=== PATIENT | male | born 1945 | race Caucasian/White ===

== ENCOUNTER 2016-10-17 17:11 | Inpatient (IN) | payer OTHER ==
[2016-10-17] MEDS ORDERED: LORazepam 2 MG/ML INJ IVP ONE (17:36)
--- NOTE | 2016-10-17 17:36 | EDPHY ---
H & P Time Seen by Provider: 10/17/16 17:14 HPI/ROS: CHIEF COMPLAINT: Altered mental status. Limitations: AMS, unable to provide any clinical history HISTORY OF PRESENT ILLNESS: The patient is a 71 year old male with paraplegia presenting with altered mental status. Onset of altered mental status is 3 weeks ago. The patient has gradually been worsening. Ativan occasionally provides relief. A home doctor saw the patient yesterday. He has a diagnosed draining abscess on the buttock and started on Levaquin. The patient took 1 dose of Levaquin. No fever in the last few days. Over the past week the patient has been complaining of pain, however, it is unclear of where the patient is having pain. The family decided to bring the pt to the ED because it is very difficult to care for him at home and they would like to pursue hospice care. History was obtained from the patient's daughter. REVIEW OF SYSTEMS: Unobtainable due to patients altered mental status. Past Medical/Surgical History: Traumatic T6 fracture, Paraplegic, Tib/Fib fractures, Pressure ulcers. Social History: Daughter provided history. Smoking Status: Never smoked Physical Exam: General Appearance: Alert, agitated Eyes: Pupils equal and round, no conjunctival pallor ENT, Mouth: Mucous membranes dry Neck: Normal inspection Respiratory: refuses lung exam Cardiovascular: refuses CV exam Gastrointestinal: Abdomen is soft Buttocks: draining abscess left buttock, no erythema Neurological: Alert, unable to access orientation, paraplegia Skin: Warm and dry Extremities: normal inspection Psychiatric: agitated Constitutional: Initial Vital Signs Temperature (C) 36.5 C 10/17/16 17:47 Heart Rate 108 H 10/17/16 17:47 Respiratory Rate 20 10/17/16 17:47 Blood Pressure 160/86 H 10/17/16 17:47 O2 Sat (%) 95 10/17/16 17:47 O2 Delivery Mode Nasal Cannula O2 (L/minute) 2 Allergies/Adverse Reactions: oxycodone Allergy (Verified 10/17/16 17:46) Home Medications: Medication Instructions Recorded Herbals/Supplements -Info Only 1 ea PO DAILY 06/30/16 LORazepam [Ativan] 0 mg PO ONCE 10/17/16 morphINE [Roxanol 10 mg/0.5 ml 0 mg PO ONCE 10/17/16 oral soln (*)] Medical Decision Making - Diagnostics EKG Interpretation: The 12 lead EKG was interpreted by myself. See hard copy and/or "tracemaster" electronic copy for interpretation: Atrial fibrillation. Abnormal T. Prolonged QT interval. ED Course/Re-evaluation: The patient is a 71 year old paraplegic male presenting with altered mental status. Onset of AMS is 3 weeks ago, and has since been worsening. The patient is afebrile. He was visited by a home doctor who diagnosed him with a buttock abscess and was started on Levaquin. The abscess has continued to drain. A wound culture was sent. Further examination is difficult to obtain due to patient's agitation. A straight cath was used to obtain a urine sample, UA is pending. Meets SIRS criteria with tachycardia and leukocytosis. Lactate normal; does not meet severe sepsis criteria. IV was established. The patient received 1gm Invanz to treat buttock abscess and and 1mg Ativan for agitation. CT head is pending. UA is positive for leukocyte esterase. Prior urine cx positive for Staph Epidermidus, likely colonization. The patient received IV Vancomycin and IV fluids. I spoke to the hospitalist, the patient will be admitted to Dr. Flood. 7:32 p.m.: I spoke to the radiologist Dr. Alonzo. CT head reveals a chronic evolving large ischemic infarct. I viewed the images myself on the PACS system. See the full radiology report in the imaging section. 7:35 p.m.: I discussed findings with the patient's family. Onset of AMS about 6 weeks ago, likely time of onset of CVA. ASA 325mg [place] given. Differential Diagnosis: Altered mental status including but not limited to hypoglycemia, infectious process, electrolyte abnormality, head injury and intoxicants. - Data Points Laboratory Results: Laboratory Results 10/17/16 17:45 10/17/16 17:45 Microbiology Results: MICROBIOLOGY 10/17/16 17:30 Buttock - Swab Gram Stain - Final 10/17/16 17:30 Buttock - Swab Wound Culture - Preliminary Staphylococcus Aureus 10/17/16 17:45 Blood Blood Culture - Preliminary 10/17/16 18:00 Blood Blood Culture - Preliminary Medications Given: Discontinued Medications Aspirin (Aspirin) 324 mg PO EDNOW ONE Stop: 10/17/16 19:45 Last Admin: 10/17/16 20:10 Dose: 324 mg Enoxaparin Sodium (Lovenox) 30 mg SC DAILY LUZ Stop: 04/16/17 08:59 Last Admin: 10/19/16 08:31 Dose: 30 mg Ertapenem 1 gm/ Sodium (Chloride) 100 mls @ 200 mls/hr IV EDNOW ONE PRN Reason: Protocol Stop: 10/17/16 18:07 Last Admin: 10/17/16 18:30 Dose: 100 mls Sodium Chloride (Ns) 1,000 mls @ 0 mls/hr IV ONCE ONE PRN Reason: Wide Open Stop: 10/17/16 18:40 Last Admin: 10/17/16 18:49 Dose: 1,000 mls Vancomycin/Sodium Chloride (Vancomycin 1 Gm (Premix)) 250 mls @ 250 mls/hr IV EDNOW ONE PRN Reason: Protocol Stop: 10/17/16 19:50 Last Admin: 10/17/16 20:20 Dose: 250 mls Sodium Chloride (Ns) 1,000 mls @ 75 mls/hr IV CONT LUZ Stop: 04/15/17 23:44 Last Admin: 10/18/16 00:28 Dose: 1,000 mls Lorazepam (Ativan Injection) 1 mg IVP EDNOW ONE Stop: 10/17/16 17:37 Last Admin: 10/17/16 17:49 Dose: 1 mg Lorazepam (Ativan Injection) 0.5 - 1 mg IVP Q12 PRN PRN Reason: Anxiety, Unable to Take PO Stop: 04/16/17 10:40 Last Admin: 10/18/16 11:33 Dose: 1 mg Lorazepam (Ativan Injection) 0.5 - 1 mg IVP Q4HRS PRN PRN Reason: Anxiety, Unable to Take PO Stop: 04/16/17 10:40 Last Admin: 10/19/16 05:15 Dose: 1 mg Magnesium Hydroxide (Milk Of Magnesia) 30 ml PO ONCE ONE Stop: 10/19/16 09:31 Last Admin: 10/19/16 16:56 Dose: Not Given Mineral Oil (Muri-Lube Mineral Oil) 30 ml TP ONCE ONE Stop: 10/19/16 09:31 Last Admin: 10/19/16 16:56 Dose: Not Given Morphine Sulfate (Morphine) 1 - 2 mg IVP Q4HRS PRN PRN Reason: Pain, Severe Unable to Take PO Stop: 10/27/16 23:33 Last Admin: 10/18/16 09:36 Dose: 2 mg Morphine Sulfate (Morphine) 1 - 2 mg IVP Q1 PRN PRN Reason: Pain, Severe Unable to Take PO Stop: 10/27/16 23:33 Last Admin: 10/19/16 08:28 Dose: 2 mg Departure - Departure Disposition: [facility] Inpatient Acute Clinical Impression: Abscess of buttock Altered mental status Qualifiers: Altered mental status type: delirium Qualified Code(s): R41.0 - Disorientation , unspecified UTI (urinary tract infection) Qualifiers: Urinary tract infection type: catheter-associated UTI Indwelling urinary catheter type: unspecified Encounter type: initial encounter Qualified Code(s): T83.511A - Infection and inflammatory reaction due to indwelling urethral catheter, initial encounter; N39.0 - Urinary tract infection, site not specified CVA (cerebral vascular accident) Qualifiers: CVA mechanism: embolism Precerebral and cerebral artery: middle cerebral artery Laterality of affected vessel: right Qualified Code(s): I63.411 - Cerebral infarction due to embolism of right middle cerebral artery Condition: Serious Report Scribed for: Dorothea Spear Report Scribed by: Katelyn Ríos Date of Report: 10/17/16 Time of Report: 17:17 Physician Review and Approval Statement: 10/17/16 17:18 Portions of this note were transcribed by a hospital medical biller. I personally performed the history, physical exam, and medical decision-making; and confirmed the accuracy of the information in the transcribed note.
[2016-10-17] MEDS ORDERED: ERTAPENEM 1 GM in NS 100 ML IV ONE (17:38)
[2016-10-17 18:21] LABS: % IMMATURE GRANULYOCYTES 1.3 % (0.0-1.1); ABSOLUTE IMMATURE GRANULOCYTES 0.16 10^3/uL (0.00-0.10); ABSOLUTE NRBC COUNT 0.09 10^3/uL (0-0.01); ADD DIFF? NO; ADD MORPH? NO; ADD SCAN? NO; ATYPICAL LYMPHOCYTE FLAG 20 (0-99); FRAGMENT RBC FLAG 0 (0-99); HEMATOCRIT 38.7 % (40.0-51.0); HEMOGLOBIN 12.8 g/dL (13.7-17.5); LEFT SHIFT FLG 10 (0-99); LIPEMIA HEMOLYSIS FLAG 80 (0-99); MEAN CELL HEMOGLOBIN 30.3 pg (27.9-34.1); MEAN CELL HEMOGLOBIN CONCENTR. 33.1 g/dL (32.4-36.7); MEAN CELL VOLUME 91.7 fL (81.5-99.8); MEAN PLATELET VOLUME 11.7 fL (8.7-11.7); NRBC-AUTO% 0.7 % (0.0-0.2); PLATELET CLUMPS FLAG 10 (0-99); PLATELET COUNT 219 10^3/uL (150-400); RED BLOOD CELL COUNT 4.22 10^6/uL (4.40-6.38)
[2016-10-17 18:26] LABS: ANION GAP 13 mEq/L (8-16); CALCIUM 8.8 mg/dL (8.5-10.4); CARBON DIOXIDE 27 mEq/l (22-31); CHLORIDE 102 mEq/L (97-110); CREATININE 0.7 mg/dL (0.7-1.3); GLOMERULAR FILTRATION RATE > 60; GLUCOSE 103 mg/dL (70-100); POTASSIUM 4.6 mEq/L (3.5-5.2); SODIUM 142 mEq/L (134-144)
[2016-10-17] MEDS ORDERED: NS 1,000 ML IV ONE (18:39)
[2016-10-17 18:57] LABS: COLOR AMBER; LEUKOCYTE ESTERASE,URINE 2+ (NEGATIVE); NITRITE,URINE NEGATIVE (NEGATIVE)
[2016-10-17 19:01] LABS: MUCUS 4+ /lpf (NONE-1+); WBC,URINE 50-182 /hpf (0-3)
[2016-10-17] MEDS: VANCOMYCIN HCL/NORMAL SALINE 250 ML IV ONE ×2 (19:11→20:20)
--- NOTE | 2016-10-17 19:43 | CPEKG ---
Heart Rate: 88 RR Interval: 682 QRSD Interval: 100 QT Interval: 428 QTC Interval: 518 QRS [place]: 44 T Wave [place]: 265 EKG Severity - ABNORMAL ECG - EKG Impression: ATRIAL FIBRILLATION, V-RATE 64-115 EKG Impression: ABNORMAL T, CONSIDER ISCHEMIA, INFERIOR LEADS EKG Impression: PROLONGED QT INTERVAL EKG Impression: ATRIAL FIB NCHANGED, BUT T WAVE CHANGES NEW Electronically Signed By: Duc Babb 18-Oct-2016 08:58:34
[2016-10-17] MEDS ORDERED: ASPIRIN 81 MG CHEWABLE TAB PO ONE (19:44)
[2016-10-17] MEDS ORDERED: VANCOMYCIN 1 GM/NS 250 ML BAG IV ONE (20:03)
[2016-10-17] MEDS ORDERED: ONDANSETRON 4 MG/2 ML VIAL IVP PRN (23:34)
[2016-10-17] MEDS ORDERED: ONDANSETRON DISINTEGRATING 4 MG TAB PO PRN (23:34)
[2016-10-17] MEDS ORDERED: ACETAMINOPHEN 325 MG TAB PO PRN (23:34)
--- NOTE | 2016-10-17 23:42 | PDGENHP ---
History and Physical - Chief Complaint altered mental status - History of Present Illness Patient is a 71-year-old male with history of paraplegia, chronic pain, known history of AFib not on anticoagulation due to patient's choice, previous history of pulmonary embolism and BPH who presents to the ED with altered mental status. History is obtained from patient's family, due to patient's altered mental status. states she feels patient has not been acting normally since returning from vacation in [place] about 6 weeks ago. At that time, he appeared to be acting confused, but without focal deficits, so he was evaluated by a PMD. At that time, his Na level was noted to be 122, so altered mental status was attributed to this. Sodium was corrected over time, but patient's confusion/AMS did not improve according to his . During this time , he had also been complaining of increased pain, so he had been taking increased doses of CBD oil and family attributed some of his confusion to this. However, about 1 week ago, patient became acutely more altered, began to have decreased PO intake and decreased sleep. On the day prior to presentation, patient appeared to be having word-finding difficulty/was using incorrect words. There was no associated dysarthria or dysphagia. He was evaluated by a home-visiting PMD and a buttock abscess was discovered on this visit. He was started on Levaquin, however, on day of presentation, patient became acutely more agitated with his family, so they decided to bring him in to the ED for further evaluation. On arrival to the ED, patient was afebrile and hemodynamically stable, however, was acutely agitated, preventing medical intervention. He was sedated with lorazepam and CT head was obtained. This revealed a large subacute R parietal- occipital infarct that appears consistent with embolic etiology. UA also revealed possible UTI, so he was initiated on antibiotics and admitted to the hospitalist service for further management. History Information - Allergies/Home Medication List Allergies/Adverse Reactions: oxycodone Allergy (Verified 10/17/16 17:46) Home Medications: Herbals/Supplements -Info Only 1 ea PO DAILY 06/30/16 [Last Taken Unknown] LORazepam [Ativan] 0 mg PO ONCE 10/17/16 [Last Taken 10/17/16] morphINE [Roxanol 10 mg/0.5 ml oral soln (*)] 0 mg PO ONCE 10/17/16 [Last Taken 10/17/16] I have personally reviewed and updated: family history, medical history, social history, surgical history - Past Medical History Additional medical history: h/o trauma 06/2016 resulting in intracranial hemorrhage. atrial fibrillation, known since 2006, not on anticoagulation. paraplegia due to major trauma in 1984. h/o Pulmonary embolism (2006). h/o prostate cancer, in remission. h/o basal cell ca - Surgical History Additional surgical history: major trauma (fall from 3 flight building) in 1984 with multiple surgeries related to this - Social History Smoking Status: Never smoked Alcohol Use: Rarely Drug Use: None Additional social history: Patient lives with his , splits time between [place] and [place]. is MPOA, has 2 children. Review of Systems Review of Systems: unable to obtain due to altered mental status Physical Exam Temp Pulse Resp BP Pulse Ox 36.6 C 80 20 143/88 H 99 10/17/16 20:59 10/17/16 20:59 10/17/16 20:59 10/17/16 20:59 10/17/16 20:59 O2 (L/minute) 2 Constitutional: not in pain, chronically ill appearing, cachectic Eyes: PERRL, anicteric sclera, EOMI Ears, Nose, Mouth, Throat: moist mucous membranes, hearing normal, ears appear normal, no oral mucosal ulcers Cardiovascular: no murmur, rub, or gallop, irregularly irregular, pulses symmetric bilaterally, No JVD, No edema Peripheral Pulses: 2+: dorsalis-pedis (R), dorsalis-pedis (L) Respiratory: no respiratory distress, no rales or rhonchi, clear to auscultation Gastrointestinal: normoactive bowel sounds, soft, non-tender abdomen, no palpable masses, distension (moderately distended, not obviously tender) Genitourinary: no bladder fullness, no bladder tenderness Skin: other (L buttock abscess draining, no surrounding erythemia) Musculoskeletal: full muscle strength, no muscle tenderness, normal joint ROM, no joint effusions Neurologic: other (obtunded, with miotic pupils, equal and reactive; spastic movements of bilateral lower extremities; moving bilateral upper extremities equally) Lab Data & Imaging Review 10/18/16 04:20 10/18/16 04:20 WBC 12.51 10^3/uL (3.80-9.50) H 10/17/16 17:45 RBC 4.22 10^6/uL (4.40-6.38) L 10/17/16 17:45 Hgb 12.8 g/dL (13.7-17.5) L 10/17/16 17:45 Hct 38.7 % (40.0-51.0) L 10/17/16 17:45 MCV 91.7 fL (81.5-99.8) 10/17/16 17:45 MCH 30.3 pg (27.9-34.1) 10/17/16 17:45 MCHC 33.1 g/dL (32.4-36.7) 10/17/16 17:45 RDW 15.0 % (11.5-15.2) 10/17/16 17:45 Plt Count 219 10^3/uL (150-400) 10/17/16 17:45 MPV 11.7 fL (8.7-11.7) 10/17/16 17:45 Neut % (Auto) 77.2 % (39.3-74.2) H 10/17/16 17:45 Lymph % (Auto) 10.7 % (15.0-45.0) L 10/17/16 17:45 Kerr % (Auto) 10.6 % (4.5-13.0) 10/17/16 17:45 Eos % (Auto) 0.0 % (0.6-7.6) L 10/17/16 17:45 Baso % (Auto) 0.2 % (0.3-1.7) L 10/17/16 17:45 Nucleat RBC Rel Count 0.7 % (0.0-0.2) H 10/17/16 17:45 Absolute Neuts (auto) 9.67 10^3/uL (1.70-6.50) H 10/17/16 17:45 Absolute Lymphs (auto) 1.34 10^3/uL (1.00-3.00) 10/17/16 17:45 Absolute Monos (auto) 1.32 10^3/uL (0.30-0.80) H 10/17/16 17:45 Absolute Eos (auto) 0.00 10^3/uL (0.03-0.40) L 10/17/16 17:45 Absolute Basos (auto) 0.02 10^3/uL (0.02-0.10) 10/17/16 17:45 Absolute Nucleated RBC 0.09 10^3/uL (0-0.01) H 10/17/16 17:45 Immature Gran % 1.3 % (0.0-1.1) H 10/17/16 17:45 Immature Gran # 0.16 10^3/uL (0.00-0.10) H 10/17/16 17:45 VBG Lactic Acid 2.0 mmol/L (0.7-2.1) 10/17/16 20:02 Sodium 142 mEq/L (134-144) 10/17/16 17:45 Potassium 4.6 mEq/L (3.5-5.2) 10/17/16 17:45 Chloride 102 mEq/L (97-110) 10/17/16 17:45 Carbon Dioxide 27 mEq/l (22-31) 10/17/16 17:45 Anion Gap 13 mEq/L (8-16) 10/17/16 17:45 BUN 29 mg/dL (7-23) H 10/17/16 17:45 Creatinine 0.7 mg/dL (0.7-1.3) 10/17/16 17:45 Estimated GFR > 60 10/17/16 17:45 Glucose 103 mg/dL (70-100) H 10/17/16 17:45 Calcium 8.8 mg/dL (8.5-10.4) 10/17/16 17:45 Urine Color RONALD 10/17/16 18:42 Urine Appearance CLEAR 10/17/16 18:42 Urine pH 5.0 (5.0-7.5) 10/17/16 18:42 Ur Specific [place] 1.023 (1.002-1.030) 10/17/16 18:42 Urine Protein 2+ (NEGATIVE) H 10/17/16 18:42 Urine Ketones TRACE (NEGATIVE) H 10/17/16 18:42 Urine Blood NEGATIVE (NEGATIVE) 10/17/16 18:42 Urine Nitrate NEGATIVE (NEGATIVE) 10/17/16 18:42 Urine Bilirubin NEGATIVE (NEGATIVE) 10/17/16 18:42 Urine Urobilinogen NEGATIVE EU (0.2-1.0) 10/17/16 18:42 Ur Leukocyte Esterase 2+ (NEGATIVE) H 10/17/16 18:42 Urine RBC 1-3 /hpf (0-3) 10/17/16 18:42 Urine WBC 50-182 /hpf (0-3) H 10/17/16 18:42 Ur Epithelial Cells 1+ /lpf (NONE-1+) 10/17/16 18:42 Urine Mucus 4+ /lpf (NONE-1+) H 10/17/16 18:42 Ur Culture Indicated? INDICATED (NI) H 10/17/16 18:42 Urine Glucose NEGATIVE (NEGATIVE) 10/17/16 18:42 Visualized and Interpreted imaging results: Yes Interpretation: CT head: large subacute parietal-occipital infarct with encephalomalacia. AXR: large dilated loops of bowel, no obvious obstruction Visualized and Interpreted EKG results: Yes EKG additional interpertation: atrial fibrillation Assessment & Plan Assessment: Patient is a 71 year old male with atrial fibrillation, paraplegia with chronic pain who presents to the ED with his family due to acute/subacute encephalopathy. ED work up reveals large, subacute R ischemic infarct with encephalomalacia, and possible UTI. Plan: # acute/subacute encephalopathy Family indicates patient has been altered for the past 5-6 weeks, initially attributed to hyponatremia. MS has acutely worsened in the past 2-3 days, with new agitation and word-finding difficulties, according to patient's . On my evaluation, exam is difficult to assess due to sedation from recent ativan. ED work up reveals CT head with large infarct, as well as L buttock abscess and also UTI. Will treat infections and monitor MS. # subacute R parietal/occipital infarct This likely occurred 2-3 days prior to presentation, when patient's noted a change in his speech/increased agitation. CT imaging appears consistent with embolic etiology and patient with known afib not on systemic anticoagulation due to patient choice. Patient's continues to refuse systemic anticoagulation at this time. Will check TTE, lipid panel, TSH and obtain neuro consult. Patient not tpa candidate due to delayed presentation. # leukocytosis, UTI Patient with tachycardia and leukocytosis on presentation and UA positive for wbc and LE, consistent with mild sepsis from UTI. Patient also has draining abscess on L buttock. Will obtain wound consult/evaluation for this, f/u blood and urine cultures and cont antibiotics. Lactic acid is normal. # atrial fibrillation HR currently stable. Patient not on any rate controlling or anticoagulation meds at home. Will monitor HR and control if needed. Will also trend troponins and monitor EKGs for ischemic changes. # paraplegia, chronic pain Stable at present, will treat pain as needed. 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
[2016-10-17] MEDS ORDERED: NS 1,000 ML IV SCH (23:45)
[2016-10-18 04:36] LABS: ABSOLUTE IMMATURE GRANULOCYTES 0.09 10^3/uL (0.00-0.10); ABSOLUTE NRBC COUNT 0.08 10^3/uL (0-0.01); ADD DIFF? NO; ADD MORPH? NO; ADD SCAN? NO; ATYPICAL LYMPHOCYTE FLAG 20 (0-99); FRAGMENT RBC FLAG 0 (0-99); HEMOGLOBIN 11.4 g/dL (13.7-17.5); LEFT SHIFT FLG 0 (0-99); LIPEMIA HEMOLYSIS FLAG 80 (0-99); MEAN CELL HEMOGLOBIN 30.3 pg (27.9-34.1); MEAN CELL HEMOGLOBIN CONCENTR. 33.5 g/dL (32.4-36.7); MEAN CELL VOLUME 90.4 fL (81.5-99.8); MEAN PLATELET VOLUME 11.5 fL (8.7-11.7); NRBC-AUTO% 0.9 % (0.0-0.2); PLATELET CLUMPS FLAG 0 (0-99); PLATELET COUNT 195 10^3/uL (150-400); RED BLOOD CELL COUNT 3.76 10^6/uL (4.40-6.38); RED CELL DISTRIBUTION WIDTH 14.9 % (11.5-15.2)
[2016-10-18 04:46] LABS: APTT 31.7 SEC (23.0-38.0); INR 1.52 (0.83-1.16); PROTIME(PATIENT) 18.3 SEC (12.0-15.0)
[2016-10-18 04:51] LABS: ALANINE AMINOTRANSFERASE 96 IU/L (21-72); ALBUMIN 2.3 g/dL (3.5-5.0); ALKALINE PHOSPHATASE 216 IU/L (38-126); ANION GAP 8 mEq/L (8-16); ASPARTATE AMINOTRANSFERASE 49 IU/L (17-59); BILIRUBIN,TOTAL 0.6 mg/dL (0.1-1.4); BILIRUBIN-CONJUGATED 0.4 mg/dL (0.0-0.5); BILIRUBIN-UNCONJUGATED 0.2 mg/dL (0.0-1.1); CALCIUM 8.1 mg/dL (8.5-10.4); CARBON DIOXIDE 24 mEq/l (22-31); CHLORIDE 109 mEq/L (97-110); CHOLESTEROL 87 mg/dL (140-220); CHOLESTEROL/HDL RATIO 4.14 RATIO (1.00-4.97); CREATININE 0.7 mg/dL (0.7-1.3); GLOMERULAR FILTRATION RATE > 60; GLUCOSE 81 mg/dL (70-100); HIGH DENSITY LIPOPROTEIN 21 mg/dL (40-65); LDL/HDL RATIO 2.48 RATIO (1.00-3.64); LOW DENSITY LIPOPROTEIN 52 mg/dL (80-100); MAGNESIUM 2.6 mg/dL (1.6-2.3); NON-HIGH DENSITY LIPOPROTEIN 66 mg/dL (90-129); POTASSIUM 4.2 mEq/L (3.5-5.2); SODIUM 141 mEq/L (134-144); TOTAL PROTEIN 5.2 g/dL (6.3-8.2); TRIGLYCERIDE 74 mg/dL (40-150); VERY LOW DENSITY LIPOPROTEINS 14 mg/dL (8-25)
[2016-10-18 05:00] LABS: CREATINE KINASE-MB FRACTION 1.38 ng/mL (0-3.19); TROPONIN I 0.118 ng/mL (0-0.034)
[2016-10-18] MEDS: ERTAPENEM 1 GM in NS 100 ML IV SCH (09:26)
[2016-10-18] MEDS: ASPIRIN 81 MG CHEWABLE TAB PO SCH (09:26)
[2016-10-18] MEDS: ENOXAPARIN 30 MG/0.3 ML SYR SC SCH (09:26)
[2016-10-18] MEDS ORDERED: LORazepam 2 MG/ML INJ IVP PRN (10:41)
[2016-10-18] MEDS ORDERED: IOPAMIDOL (ISOVUE-300) 100 ML BTL IV ONE (13:57)
--- NOTE | 2016-10-18 14:17 | WOCRNPDOC ---
ERAN Advanced Assessment Note - Skin Integrity Problem, Advanced Assess Left Buttock Dressing Type: Allevyn Life Dressing Description: Saturated, Soiled Exudate Amount: Excessive Exudate Color: Yellow Exudate Characteristic(s): Seropurulent, Serosanguinous Integumentary Issue Intervention: Dressing Changed, Dressing Initialed & Dated Marichuy Wound Tissue: Erythema, Raw, Thin, Altered Sensitivity (2/2 paraplegia) Marichuy Wound Swelling: Mild Wound Bed Color: Red Wound Bed Constitution: Tunneling (5 cm deep, interiorly) Wound Edges: Well Defined Site Odor: None, Slight, Musky Site Measurement - Head-to-Toe Length X Width X Depth (cm): 0.5 cm elisa x 5 cm d. Pressure Injury Stage: Stage 4 Pressure Injury Present on Admit: Yes (per , has been caring for at home "for many months") Skin Integrity Problem Comment: Evaluated patient with Dr. Lancaster. SUGAR Troncoso in room to assist with care. Copious amount of seropurulent fluid exuding from small opening in medial L buttock, saturating Allevyn. Obtained culture per order of Dr. Lancaster. Irrigated site w/10cc sterile NS, cleansed intact w/gauze; Skin-prepped periwound, filled with 1/4" Algidex antimicrobial tape; covered w/ absorbent non-bordered foam and Allevyn. Discussed use of ordered pressure redistribution bed and seating surfaces with and with SUGAR Troncoso, and recommended to that PT be consulted regarding custom orthotic seating. Bilateral Sacrum Pressure Injury Dressing Type: Allevyn Life Dressing Description: Soiled Exudate Amount: None Integumentary Issue Intervention: Dressing Changed, Dressing Initialed & Dated Marichuy Wound Tissue: Thin, Scarred Wound Bed Color: [place] Wound Edges: Epithelizing, Irregular Site Odor: None Site Measurement - Head-to-Toe Length X Width X Depth (cm): 2 x 3 x 0.05 Pressure Injury Present on Admit: Yes (evidence of a resurfaced pressure ulcer of undetermined [full-thickness] d) Skin Integrity Problem Comment: Evidence of a resurfaced pressure ulcer of undetermined depth; was under care of at home, per her report and description of care, including use of "honey dressings" and "air cushion." Small pink area, measurements noted above, has the appearance of new-re- epithelializing activity. Cleansed using NS and gauze; Skin prep to intact tissue, Allevyn sacrum to protect. SUGAR Troncoso assisting.
--- NOTE | 2016-10-18 15:26 | HOSPPROG ---
Hospitalist Progress Note Assessment/Plan: * large right parietal occipital CVA * probably embolic from atrial fibrillation * echo pending * will add a carotid ultrasound * neurology will see * encephalopathy * multifactorial * urinary tract infection * continue Invanz * sacral decubitus * 1 area is stage IV due to tunneling tract versus abscess * the other is unstageable * present on admission * continue Invanz/ wound care * will get CT scan to evaluate for abscess and possible osteomyelitis * abdominal pain * check CT scan * history paraplegia * atrial fibrillation * has refused anticoagulation * elevated alk-phos * will check GGT * DVT prophylaxis Subjective: Complaining of severe right lower abdominal pain. is speaking in [place] most the time Objective: Vital Signs Temp Pulse Resp BP Pulse Ox 36.4 C 105 H 16 132/82 H 90 L 10/18/16 15:03 10/18/16 15:03 10/18/16 15:03 10/18/16 15:03 10/18/16 15:03 Laboratory Results 10/18/16 04:20 10/18/16 04:20 10/17/16 10/18/16 10/19/16 05:59 05:59 05:59 Intake Total 1350 0 Output Total 400 400 Balance 950 -400 PT 18.3 SEC (12.0-15.0) H 10/18/16 04:20 INR 1.52 (0.83-1.16) H 10/18/16 04:20 CT scan the head personally viewed interpreted - large CVA telemetry personally viewed interpreted atrial fibrillation - Time Spent With Patient Time Spent with Patient: greater than 35 minutes (discussing plan of care with family and patient) Time Spent with Patient: Greater than 35 minutes spent on this patients care, greater than 50% of time spent counseling, educating, and coordinating care regarding the above mentioned plan. - Physical Exam Constitutional: other ( moderate distress secondary to pain) Eyes: anicteric sclera, EOMI Ears, Nose, Mouth, Throat: moist mucous membranes, hearing normal, ears appear normal Cardiovascular: irregularly irregular Respiratory: no respiratory distress, no rales or rhonchi, clear to auscultation Gastrointestinal: normoactive bowel sounds, soft, non-tender abdomen ( no real tenderness. Abdominal wall muscles are quite thin), distension Skin: warm Neurologic: other ( is agitated. Answers some questions) Psychiatric: agitated ICD10 Worksheet Patient Problems: Problems Problem Status Onset Abscess of buttock Acute Altered mental status Acute UTI (urinary tract infection) Acute Intraparenchymal hematoma of brain Acute Maxillary sinus fracture Acute Orbital fracture Acute Skull fracture Acute
--- NOTE | 2016-10-18 15:53 | ECHO ---
[id number] + + [phone] : : [place] [address] : : [phone] + + Adult Echocardiographic Report + ------+ :Name: LOLA MCGRAW BStudy Date: 10/18/2016 01:36 PM : : Hospital Admission Number: [id number] Locatio n: 370: :: 1945 Gender: Male Height: 72 in : :Age: 71 yrs Race: WH Weight: 120 lb : :Reason For Study: Ischemic stroke : : BSA: 1.7 meters 2 : + ------+ MMode/2D Measurements \T\ Calculations IVSd: 0.84 cm LVIDd: 4.1 cm FS: 21.3 % Ao root diam: LVPWd: 1.4 cm LVIDs: 3.2 cm EDV(Teich): 3.9 cm 74.1 ml LA dimension: ESV(Teich): 3.5 cm 41.7 ml EF(Teich): 43.7 % LVLd ap4: 6.9 cm SV(MOD-sp4): EDV(MOD-sp4): 21.0 ml 53.0 ml LVLs ap4: 6.5 cm ESV(MOD-sp4): 32.0 ml EF(MOD-sp4): 39.6 % Normal Measurement Values: + + :LVIDd (3.5-5.7cm) IVSd (0.6-1.1cm) LVPWd (0.6-1.1cm) Aortic Root (2.0-3.7cm)Left Atrium (1.5-4.0cm): :LV Vol(d) (76-115ml) LV Vol(s) (29-48ml) Ejec Fraction (50-65%)PV Rosales (0.6- 1.2m/s) TV Rosales (0.4-1.0m/s) : :MV E Rosales (0.8-1.0m/s)MV A Rosales (0.3-1.0m/s)LVOT Rosales (0.7-1.2m/s) Asc Ao Rosales ( 0.9-1.8m/s) : + + Doppler Measurements \T\ Calculations MV E max rosales: Ao mean PG: AI max rosales: TR max rosales: 74.0 cm/sec 5.5 mmHg 400.1 cm/sec 249.6 cm/sec Ao V2 mean: AI max P.0 mmHg TR max P.1 cm/sec AI dec slope: 24.9 mmHg Ao V2 VTI: 26.8 cm197.1 cm/sec2 RAP systole: AI P1/2t: 594.5 msec 10.0 mmHg RVSP(TR): 34.9 mmHg Left Ventricle The left ventricle is normal in size. There is normal left ventricular wall thickness. Ejection Fraction = 40-45%. The septum is severely hypokinetic. Right Ventricle The right ventricle is normal size. RV apex is akinetic. Atria The left atrium is moderate to severely dilated. The right atrium is mildly dilated. Mitral Valve The mitral valve is normal in structure and function. There is no evidence of mitral valve prolapse. There is no mitral valve stenosis. There is mild mitral regurgitation. Tricuspid Valve Normal tricuspid valve. There is mild tricuspid regurgitation. Right ventricular systolic pressure is normal. Aortic Valve The aortic valve is trileaflet. All three leaflets are thickened and sclerotic. There is no aortic stenosis. Moderate aortic regurgitation. Pulmonic Valve The pulmonic valve is not well visualized. There is no pulmonic valvular regurgitation. Great Vessels Borderline dilated ascending aorta. Pericardium/Pleural There is no pericardial effusion. Left pleural effusion. Conclusion A complete two-dimensional transthoracic echocardiogram was performed (2D, M-mode, Doppler and color flow Doppler). No bubble study performed per Dr. Randolph. 1. The left ventricle is normal in size with reduced systolic function. The Ejection Fraction = 40-45%. The septum is severely hypokinetic. 2. The left atrium is moderate to severely dilated. 3. The mitral valve is normal in structure and function. There is mild mitral regurgitation. 4. The aortic valve is trileaflet. All three leaflets are thickened and sclerotic. There is no aortic stenosis. There is moderate aortic regurgitation. 5. Right ventricular systolic pressure is normal. 6. Borderline dilated ascending aorta. 7. Left pleural effusion. Final Reading Physician: Duc Rodriguez MD electronically signed on 10/18/2016 03:51 PM Ordering Physician: Kaity Flood Performed By: Mary Lou Do, FRANKLYN
[2016-10-18] MEDS: LORazepam 2 MG/ML INJ IVP PRN (20:25)
--- NOTE | 2016-10-18 21:02 | GCON ---
[f rep st] CONSULTATION INPATIENT CONSULTATION DATE OF CONSULTATION: 10/18/2016 CHIEF COMPLAINT: Stroke. HISTORY OF PRESENT ILLNESS: Dr. Sabrina Flood of the hospitalist service consulted Neurology for evaluation of patient's stroke. Results of the evaluation were placed in the EMR for review. This is a 71-year-old male who suffered a significant traumatic accident from a fall in 1984 resulting in paraplegia. He also has history of pulmonary embolism and atrial fibrillation, but has declined anticoagulation in the past and is only on aspirin 81 mg daily. He spends half of his year in [place], half in [place]. Apparently he had been living in [place] when about 6 weeks ago his noticed significant changes in mental status. They returned to the [place] and initial evaluation found a sodium 122 but no head imaging was performed. The patient remained confused so eventually was brought to the Emergency Room, at which time a head CT showed a subacute right parieto- occipital stroke that was likely from his chronic atrial fibrillation. He also possibly has pressure ulcers on his buttocks and possibly UTI. He is on antibiotics currently and under evaluation for alternative problems currently. PAST MEDICAL HISTORY: History of trauma in June 2016 resulting in intracranial hemorrhage, atrial fibrillation since 2006, paraplegia due to major trauma in 1984 from a fall, pulmonary embolism 2006, history of prostate cancer in remission, history of basal cell cancer. SOCIAL HISTORY: Never smoked. FAMILY HISTORY: Daughter is alive. REVIEW OF SYSTEMS: A 10-point review of systems is negative except what was placed in HPI. PHYSICAL EXAM: VITAL SIGNS: Blood pressure 121/94, heart rate 101, respirations 100% on nasal cannula. Temperature 36.6 degrees Celsius. GENERAL : Lying in bed, sleeping. As I enter the room, it was reported to me by the nurse and his family that he was finally able to get some sleep so they were initially hesitant to have me wake him up. Then, before I could examine him, he was taken to CT abdomen, so I was not able to perform an examination at this time. I had a long discussion, however, with his family. LABS: October 17, 2016, a UA shows 2+ leukocyte esterase. LDL 52. TSH within normal limits. RADIOLOGY: October 17, 2016, head CT showed a right parieto-occipital subacute stroke. I personally visualized this study. ASSESSMENT: 1. Subacute right parieto-occipital stroke causing altered mental status: His chronic atrial fibrillation treated only with aspirin is the most likely culprit. I have recommended that his aspirin be changed to oral anticoagulation and the family will consider this request with the patient's input. 2. Altered mental status: Likely due to a combination of subacute stroke and possibly recurrent infection of pressure ulcer and possibly urinary tract infection. 3. History of traumatic brain bleed in 2016, but no history of intracranial hemorrhage not from trauma. 4. History of major fall in 1984 with resulting paraplegia. 5. Possible urinary tract infection. 6. Pressure ulcer on buttocks. RECOMMENDATIONS: 1. Carotid ultrasound to ensure no significant carotid stenosis. 2. Transthoracic echocardiogram has already been performed but is pending Cardiology read and showed no cardiac thrombus. 3. Continue aspirin 81 mg at this time, but I have recommended the family that they consider oral anticoagulation with aspirin as this will provide much more protection from a stroke prevention standpoint given his atrial fibrillation. They are currently considering this request and in the past have declined anticoagulation. 4. LDL goal less than 70, currently 52. 5. HbA1c goal from outpatient provider is less than 7.0. 6. DVT prophylaxis recommended. 7. Agree with treatment of UTI and possible pressure ulcer with antibiotics. 8. PT, OT and Speech recommended to assess rehab needs. Neurology service will continue to follow closely. 70 min spent at bedside with family and patient, majority of time spent counseling family about his condition and prognosis. /[id number]/MODL MTDD
[2016-10-19] MEDS: LORazepam 2 MG/ML INJ IVP PRN ×2 (01:02→05:15)
[2016-10-19 04:11] LABS: % IMMATURE GRANULYOCYTES 1.3 % (0.0-1.1); ABSOLUTE IMMATURE GRANULOCYTES 0.11 10^3/uL (0.00-0.10); ABSOLUTE NRBC COUNT 0.11 10^3/uL (0-0.01); ADD DIFF? NO; ADD MORPH? YES; ADD SCAN? NO; ATYPICAL LYMPHOCYTE FLAG 30 (0-99); FRAGMENT RBC FLAG 10 (0-99); HEMATOCRIT 40.7 % (40.0-51.0); HEMOGLOBIN 13.2 g/dL (13.7-17.5); LEFT SHIFT FLG 10 (0-99); LIPEMIA HEMOLYSIS FLAG 80 (0-99); MEAN CELL HEMOGLOBIN 29.7 pg (27.9-34.1); MEAN CELL HEMOGLOBIN CONCENTR. 32.4 g/dL (32.4-36.7); MEAN CELL VOLUME 91.7 fL (81.5-99.8); MEAN PLATELET VOLUME 11.6 fL (8.7-11.7); PLATELET CLUMPS FLAG 20 (0-99); PLATELET COUNT 236 10^3/uL (150-400); RED BLOOD CELL COUNT 4.44 10^6/uL (4.40-6.38); RED CELL DISTRIBUTION WIDTH 15.4 % (11.5-15.2)
[2016-10-19 04:21] LABS: NRBC-AUTO% 1.3 % (0.0-0.2)
[2016-10-19 04:26] LABS: ALANINE AMINOTRANSFERASE 100 IU/L (21-72); ALBUMIN 2.7 g/dL (3.5-5.0); ALKALINE PHOSPHATASE 244 IU/L (38-126); ANION GAP 9 mEq/L (8-16); ASPARTATE AMINOTRANSFERASE 56 IU/L (17-59); BILIRUBIN,TOTAL 0.7 mg/dL (0.1-1.4); CALCIUM 8.3 mg/dL (8.5-10.4); CARBON DIOXIDE 25 mEq/l (22-31); CHLORIDE 112 mEq/L (97-110); CREATININE 0.7 mg/dL (0.7-1.3); GAMMA-GLUTAMYLTRANSFERASE 122 IU/L (10-59); GLOMERULAR FILTRATION RATE > 60; GLUCOSE 52 mg/dL (70-100); SODIUM 146 mEq/L (134-144); TOTAL PROTEIN 5.5 g/dL (6.3-8.2)
[2016-10-19 04:55] LABS: ECHINOCYTES 1+; PLATELET ESTIMATE ADEQUATE (ADEQ); POLYCHROMASIA 1+
[2016-10-19] MEDS: ASPIRIN 81 MG CHEWABLE TAB PO SCH (08:01)
[2016-10-19] MEDS ORDERED: D5W 1/2 NS W/ 20 KCl/L 1,000 ML IV SCH (08:30)
[2016-10-19] MEDS: ENOXAPARIN 30 MG/0.3 ML SYR SC SCH (08:31)
[2016-10-19] MEDS: ERTAPENEM 1 GM in NS 100 ML IV SCH (09:18)
[2016-10-19] MEDS ORDERED: MAGNESIUM HYDROXIDE 30 ML UDCUP PO ONE (09:30)
[2016-10-19] MEDS ORDERED: MINERAL OIL 10 ML VIAL TP ONE (09:30)
[2016-10-19] MEDS ORDERED: MAGNESIUM HYDROXIDE 30 ML UDCUP PO PRN (09:30)
[2016-10-19] MEDS: HALOPERIDOL LACT 5 MG/ML INJ IVP PRN ×2 (09:51→19:44)
[2016-10-19] MEDS ORDERED: HYDROmorphONE/DILAUDID 2 MG TAB PO PRN (10:21)
--- NOTE | 2016-10-19 11:23 | GCON ---
[f rep st] CONSULTATION DATE OF CONSULTATION: 10/19/2016 REASON FOR CONSULTATION: Left ischial osteomyelitis and a buttock abscess. Referring doctor: Ophelia Lancaster MD HISTORY OF PRESENT ILLNESS: This is a 71-year-old male with a past medical history of paraplegia due to a fall in 1984, atrial fibrillation, pulmonary embolization only on aspirin, whose recent history is pertinent for 2 years ago the onset of hyponatremia requiring a prolonged hospitalization in [place] with some resultant skin breakdown in the sacral area. Patient's used various topical treatments, including honey, and these wounds were healed approximately May 2016. Subsequently, the following month, he developed a swelling that she describes about the size of a baseball, and it was mildly painful. Patient earlier this year subsequently went to [facility], which they do regularly for approximately 5 weeks. She worried that this swelling was a tumor, and he developed increasing pain related to this area, and patient was writhing up and down related to the pain. describes that this swelling did decline. He has not received any antibiotics or surgeries related to past wounds in this sacral area. Patient presented to the emergency room on 10/17/2016 for altered mental status. A CT scan showed a large subacute right parietal occipital CVA, likely related to chronic atrial fibrillation and embolic phenomenon. As a part of his workup, patient underwent an echocardiogram, which showed CHF with ejection fraction of 40%, a dilated left atrium, trileaflet aortic valve that is thickened and sclerotic with mild aortic regurgitation. In addition, patient had blood cultures that were also performed on admission; as well, it was noted that he had a draining wound in the sacroperineal area with culture showing likely MSSA. Wound Care saw the patient yesterday and recommended evaluation with CT scan, which he underwent yesterday. This was personally reviewed by me with Radiology. This shows a phlegmon area of approximately 10 x 3 cm at the lower left buttock/perineal area, as well as perirectal area, with some small areas of liquefaction as well as air. He also has associated cellulitis. The patient was started on IV vancomycin and ertapenem on 2016. Patient remained agitated. He is bilingual but only speaking in Bengali, and appears to be expressing that he has pain in the sacral/lower abdominal region. REVIEW OF SYSTEMS: A complete 10-point review of systems was performed and is negative except as mentioned in the HPI. PAST MEDICAL HISTORY: Atrial fibrillation 2006, paraplegia 1984, intracranial hemorrhage in 2016 from a trauma, prostate cancer and remission, history of basal cell carcinoma. SOCIAL HISTORY: No tobacco. He is . is his medical power of [employer]fellow. He has 2 children. ALLERGIES: Oxycodone. MEDICATIONS: Ertapenem 1 g IV daily, no vancomycin currently, aspirin 81 mg daily, Tylenol as needed, hydromorphone IV push, Zofran, potassium as needed. PHYSICAL EXAMINATION: VITAL SIGNS: Blood pressure 149/99, heart rate 109, respiratory rate 17, saturation 95% on 10 L. GENERAL: This is a cachectic male , writhing in pain and distress, due to pain and not respiratory. HEENT: No conjunctival hemorrhages noted, but difficult exam because of agitation. Oropharynx with dry mucous membranes. Fair dentition. NECK: Supple. CARDIOVASCULAR: Difficult exam due to moaning. No murmurs were appreciated. ABDOMEN: Soft, nontender. Bowel sounds are present. : No scrotal lesions were noted. He has circumcised phallus without Nunez. No penile swelling. BACK: He has mid peroneal area obvious swelling with some mild redness of the skin extending to the left buttock region with a pinpoint hole, which easily expressed large quantities of pus with palpation of that area. Significant fat wasting in the buttocks and sacral area. Because of agitation I did not probe the wound. EXTREMITIES: Obvious significant muscle wasting of the lower extremities. Strength in the upper extremities was relatively intact. SKIN: Without rash. LABORATORY: White count 8.6 (on admission 12.5), hematocrit 40, platelets of 236, 74% neutrophils. Creatinine 0.7. GGT is 22, AST 56, ALT 100, alk phos 244 , albumin 2.7. IMAGING: As per HPI. Plain film of the abdomen showed no small bowel obstruction with a mild distal rectosigmoid fecal impaction. Abdominal CT as per HPI; liver showed hepatic steatosis. ASSESSMENT AND PLAN: This is a 71-year-old male admitted with altered mental status and found to have right subacute parietal occipital cerebrovascular accident and a chronic left buttock perineal abscess/cellulitis with phlegmon that showed associated left ischial tuberosity chronic osteomyelitis. Reviewed recommended course of treatment to attempt cure of infection with the patient's in person and daughter via phone. Reviewed need for surgical debridement and prolonged IV antibiotic therapy and that this infection is curable. Both the and daughter expressed that this aggressive treatment for this infection may not be within patient's desired treatment goals. Reviewed primary pathogen, MSSA. At this point, no evidence of endocarditis or mycotic aneurysm based on the data that blood cultures from 10/17 are no growth to date , and echocardiogram without clear evidence of valvular abnormalities. Nonetheless, aortic valve does have sclerosis of the valve. After explaining course of recommended treatment, patient's and daughter desire further discussion amongst the family before deciding on a specific treatment. ASSESSMENT 1. MSSA left buttock/perineal abscess and cellulitis with associated ischial tuberosity osteomyelitis 2. Elevated LFTs may be due to infection. Hepatic steatosis on CT scan 3. Leukocytosis secondary to infection, resolved PLAN: This is a reasonable approach, and in the interim will continue patient on IV ertapenem. Will consider adjustment of antibiotics based on further susceptibility testing. I do have concern that there could be anaerobes playing a role with this infection, therefore ertapenem a reasonable choice until further data. Further workup of LFTs based on goals of therapy. Will hold off consulting Surgery at this time until family decides on treatment plan. Thank you for this consultation. Time was 75 minutes, greater than 50% of time spent with education and counseling regarding treatment course, including surgery and IV antibiotics. Coordination of care with hospitalist. /[id number]/MODL MTDD
[2016-10-19] MEDS: HYDROmorphONE/DILAUDID 1 MG/ML SYR IVP PRN ×4 (12:12→23:49)
--- NOTE | 2016-10-19 13:54 | HOSPPROG ---
Hospitalist Progress Note Assessment/Plan: * large right parietal occipital CVA * probably embolic from atrial fibrillation * echo shows no embolic source * carotid ultrasound looked okay * neurology following * encephalopathy * multifactorial * urinary tract infection * continue Invanz * sacral decubitus * 1 area is stage IV due to tunneling tract versus abscess * the other is unstageable * present on admission * CT scan shows large phlegmon on the left and probable osteomyelitis * id input appreciated - family reluctant to pursue aggressive care * continue Invanz/ wound care * possible ischemic cardiomyopathy * septal wall motion abnormality * flat troponins which could be from Heart or brain * will probably not pursue aggressive cardiac workup at this time * abdominal pain * CT scan does not show any intra-abdominal process other than constipation which may be causing his pain * will try mineral oil enema and milk of magnesia * history paraplegia due to traumatic fall 1984 * atrial fibrillation * has refused anticoagulation * elevated alk-phos * GGT elevated and this may be from liver * social - the family has requested palliative care consult * DVT prophylaxis Subjective: having significant pain which seems to be lower abdominal and sacral area Objective: Vital Signs Temp Pulse Resp BP Pulse Ox 36.8 C 109 H 16 149/99 H 95 10/19/16 04:00 10/19/16 04:00 10/19/16 04:00 10/19/16 04:00 10/19/16 04:00 Microbiology 10/18/16 11:00 Gram Stain - Final Buttock - Anaerobic Tube/Swab Laboratory Results 10/19/16 04:00 10/19/16 04:00 10/18/16 10/19/16 10/20/16 05:59 05:59 05:59 Intake Total 1350 900 900 Output Total 400 900 Balance 950 0 900 PT 18.3 SEC (12.0-15.0) H 10/18/16 04:20 INR 1.52 (0.83-1.16) H 10/18/16 04:20 discussed with Infectious Disease - Time Spent With Patient Time Spent with Patient: greater than 35 minutes (discussing care with family and with consultants) Time Spent with Patient: Greater than 35 minutes spent on this patients care, greater than 50% of time spent counseling, educating, and coordinating care regarding the above mentioned plan. - Physical Exam Constitutional: other ( [id number] distress), No not in pain Ears, Nose, Mouth, Throat: moist mucous membranes Cardiovascular: no murmur, rub, or gallop, irregularly irregular Respiratory: no respiratory distress, no rales or rhonchi, clear to auscultation Gastrointestinal: normoactive bowel sounds, soft, non-tender abdomen, other ( thin abdominal wall muscles and can feel hard stool in colon) Skin: warm Neurologic: other ( interacting some moving all 4 extremities) ICD10 Worksheet Patient Problems: Problems Problem Status Onset Abscess of buttock Acute Altered mental status Acute UTI (urinary tract infection) Acute Intraparenchymal hematoma of brain Acute Maxillary sinus fracture Acute Orbital fracture Acute Skull fracture Acute
[2016-10-19] MEDS ORDERED: LORazepam 2 MG/ML INJ IVP PRN (20:05)
[2016-10-20] MEDS: LORazepam 2 MG/ML INJ IVP PRN ×4 (02:05→15:13)
[2016-10-20] MEDS: HYDROmorphONE/DILAUDID 1 MG/ML SYR IVP PRN ×6 (02:14→16:01)
[2016-10-20 07:48] VITALS: BP 135/88; PULSE 84; RESP 14; TEMP 97.2; O2SAT 85
[2016-10-20] MEDS ORDERED: ENOXAPARIN 40 MG/0.4 ML SYR SC SCH (09:00)
[2016-10-20] MEDS: ASPIRIN 81 MG CHEWABLE TAB PO SCH (10:25)
[2016-10-20] MEDS: ERTAPENEM 1 GM in NS 100 ML IV SCH (10:25)
--- NOTE | 2016-10-20 13:04 | PDDCSUM ---
Discharge Summary Discharge Summary: Dates of service 10/17-10/20/16 Discharge dx: # acute on chronic encephalopathy # CVA # right ischial osteomyelitis/buttocks abscess # acute systolic heart failure # atrial fibrillation # UTI # a fib # paraplegia # chronic pain # hx of PE Consultation: ID, neurology, hospice procedures performed: head ct, abdomen ct, echo Hospital course by problem: * large right parietal occipital CVA * probably embolic from atrial fibrillation * echo shows no embolic source * carotid ultrasound looked okay * neurology following * encephalopathy * multifactorial, not improved * urinary tract infection * was started on invanz, discontinued given goals of care * sacral decubitus * CT scan shows large phlegmon on the left and probable osteomyelitis * id input appreciated - family opting for comfort only * acute systolic heart failure w/EF of 40% * septal wall motion abnormality * flat troponins which could be from Heart or brain * abdominal pain * CT scan does not show any intra-abdominal process other than constipation which may be causing his pain * aggressive pain mgmt given goals of care * history paraplegia due to traumatic fall 1984 * atrial fibrillation * has refused anticoagulation * elevated alk-phos * GGT elevated and this may be from liver * social - plan for IP hospice Long discussion with family, they are opting for IP hospice, do not want any care to prolong life but as natural a as possible. Will dc to IP hospice.
--- NOTE | 2016-10-20 13:57 | PDIAF ---
- Diagnosis Code Status: Do Not Resuscitate - Medication Management Discharge Medications: Medications to Continue on Transfer morphINE [Roxanol 10 mg/0.5 ml oral soln (*)] 0 mg PO ONCE 10/17/16 [Last Taken 10/17/16] Acetaminophen [Tylenol 325mg (*)] 650 mg PO Q4HRS PRN #0 tab 10/20/16 [Last Taken Unknown] HYDROmorphone HCL [Dilaudid 2 mg (*)] 2 - 4 mg PO Q4HRS PRN #0 tab 10/20/16 [ Last Taken Unknown] HYDROmorphone HCL [Dilaudid] 1 - 2 mg IVP Q1H PRN #0 syr 10/20/16 [Last Taken Unknown] Haloperidol Lactate [Haldol Injection] 1 - 3 mg IVP Q6HRS PRN #0 inj 10/20/16 [ Last Taken Unknown] LORazepam [Ativan inj 2 mg/ml (*)] 1 mg IVP Q3 PRN #0 inj 10/20/16 [Last Taken Unknown] Ondansetron HCl Pf [Zofran 4 mg Inj (*)] 4 mg IVP Q4HRS PRN #0 vial 10/20/16 [ Last Taken Unknown] Ondansetron Odt [Zofran Odt 4 mg (*)] 4 mg PO Q4HRS PRN #0 tab 10/20/16 [Last Taken Unknown] Discharge Medications: Refer to the Discharge Home Medication list for PRN reason. - Orders Services needed: Registered Nurse, Certified [employer] Diet Recommendation: no restrictions on diet Diet Texture: Regular Texture Diet, Thin Liquids, Meds Whole in Puree - Follow Up Care Current Providers and Referrals: Patient,NotPresent [Unknown] - As per Instructions
== END 2016-10-20 16:14 | disposition hospice, home (50) | DRG 64 ==
LOC: EDUNIT# → F3E 20:27 → F3N 10-18 14:51
PROVIDERS: ADMIT Internal Medicine; ATTEND Internal Medicine
DX: I63.232 Cerebral infarction due to unspecified occlusion or stenosis of left carotid arteries (principal); N39.0 Urinary tract infection, site not specified; G93.40 Encephalopathy, unspecified; L89.154 Pressure ulcer of sacral region, stage 4; M86.459 Chronic osteomyelitis with draining sinus, unspecified femur; I50.21 Acute systolic (congestive) heart failure; B95.61 Methicillin susceptible Staphylococcus aureus infection as the cause of diseases classified elsewhere; I48.91 Unspecified atrial fibrillation; G82.20 Paraplegia, unspecified; Z87.81 Personal history of (healed) traumatic fracture; Z86.711 Personal history of pulmonary embolism; Z79.82 Long term (current) use of aspirin
CPT/HCPCS: 92610-GN; 96365; J1170; J1335; J1650; J2060; J3370; Q9967